=== PATIENT | male | born 1940 | race Hispanic/Latino ===

== ENCOUNTER 2022-08-19 11:35 | Emergency (ER) | payer MEDICARE ==
[~2022-08-19] VITALS: Ht 165.1 cm; Wt 113.4 kg
[2022-08-19 11:49] LABS: BASOPHILS % (AUTO) 0.8 % (0.0-5.0); HEMATOCRIT 35.1 % (42-54); LYMPHOCYTES % (AUTO) 19.2 % (21.0-51.0); MEAN CORPUSCULAR HEMOGLOBIN 29.2 pg (27.0-33.0); MEAN CORPUSCULAR HGB CONC 33.6 g/dL (32.0-36.0); MEAN CORPUSCULAR VOLUME 86.9 fL (79-99); MONOCYTES % (AUTO) 7.6 % (3.0-13.0); PLATELET COUNT (AUTO) 318 K/uL (130-400); RED BLOOD CELL COUNT(AUTO) 4.04 MIL/uL (4.50-6.20); RED CELL DISTRIBUTION WIDTH 14.6 % (11.0-15.5); WHITE BLOOD COUNT (AUTO) 10.5 K/uL (4.8-10.8)
[2022-08-19 11:57] LABS: CREATININE 1.7 mg/dL (0.5-1.5)
[2022-08-19 12:02] LABS: ALBUMIN 3.1 g/dL (3.5-5.0)
[2022-08-19 12:43] LABS: B-TYPE NATRIURETIC PEPTIDE 149 pg/mL (0-100)
[2022-08-19] MEDS ORDERED: IPRATROPIUM/ALBUTEROL SULFATE 3 ML SOLUTION IH ONE (13:30)
[2022-08-19] MEDS ORDERED: AUD IH (14:19)
[2022-08-19 16:14] VITALS: BP 111/74
== END 2022-08-19 16:14 | disposition home or self-care (01) ==
LOC: EDH 11:35
DX: J44.9 Chronic obstructive pulmonary disease, unspecified (principal); E11.9 Type 2 diabetes mellitus without complications; E78.00 Pure hypercholesterolemia, unspecified; I10 Essential (primary) hypertension; Z95.1 Presence of aortocoronary bypass graft; Z79.899 Other long term (current) drug therapy
CPT/HCPCS: 36415; 71045; 80053; 83880; 84484; 85025; 93005; 94640

== ENCOUNTER 2022-08-26 13:53 | Emergency (ER) | payer MEDICARE ==
[~2022-08-26] VITALS: Ht 167.6 cm; Wt 90.7 kg
[~2022-08-26 13:53] MED LIST: AUD IH
[2022-08-26 15:33] VITALS: BP 130/67
[2022-08-26] MEDS ORDERED: ALBUHFA IH (17:50)
== END 2022-08-26 17:54 | disposition home or self-care (01) ==
LOC: EDH 13:53
DX: R14.0 Abdominal distension (gaseous) (principal); R06.02 Shortness of breath; E11.9 Type 2 diabetes mellitus without complications; I10 Essential (primary) hypertension; E78.00 Pure hypercholesterolemia, unspecified; Z88.5 Allergy status to narcotic agent; Z88.0 Allergy status to penicillin; Z98.890 Other specified postprocedural states
CPT/HCPCS: 71045